=== PATIENT | female | born 1940 | race Hispanic/Latino ===

== ENCOUNTER 2018-01-06 10:22 | Emergency (ER) | payer MEDICARE, MEDICAID ==
[2018-01-06 10:29] VITALS: RESP 16; TEMP 98.3
--- NOTE | 2018-01-06 10:57 | C.PDOC ---
History Of Present Illness 77 year old female with a PSH of cholecystectomy presents to the ER complaining of left lower quadrant pain for 3 days. Patient denies any radiation of pain, fever, nausea, vomiting, diarrhea, or any urinary symptoms. LLQ PAIN X 3 DAYS, LOCALIZED. NO FEVER, NVD, UTI SX. PSH NICOLE. EXAM +LLQ TEND MILD SOFT NO R/G REMAINDER NEG Time Seen by Provider: 01/06/18 10:31 Chief Complaint (Nursing): Abdominal Pain History Per: Patient History/Exam Limitations: no limitations Onset/Duration Of Symptoms: Days Current Symptoms Are (Timing): Still Present Location Of Pain/Discomfort: LLQ Radiation Of Pain To:: None Quality Of Discomfort: "Pain" Associated Symptoms: denies: Fever, Chills, Nausea, Diarrhea, Urinary Symptoms Past Medical History Reviewed: Historical Data, Nursing Documentation, Vital Signs Vital Signs: Last Vital Signs Temp 98.3 F 01/06/18 10:27 Pulse 71 01/06/18 14:42 Resp 16 01/06/18 14:42 BP 131/85 01/06/18 14:42 Pulse Ox 98 01/06/18 14:42 Surgical History: Cholecystectomy - [facility] Procedures PERCUTAN NEEDLE BIOPSY OF BREAST (07/04/05) Family History: States: No Known Family Hx - Social History Hx Alcohol Use: No Hx Substance Use: No Review Of Systems Except As Marked, All Systems Reviewed And Found Negative. Constitutional: Negative for: Fever, Chills Gastrointestinal: Positive for: Abdominal Pain (LLQ). Negative for: Nausea, Vomiting, Diarrhea Genitourinary: Negative for: Dysuria, Incontinence, Vaginal Discharge, Vaginal Bleeding Physical Exam - Physical Exam Appears: Non-toxic, No Acute Distress Skin: Normal Color, Warm, Dry Head: Atraumatic, Normacephalic Eye(s): bilateral: Normal Inspection Nose: Normal Oral Mucosa: Moist Neck: Supple Chest: Symmetrical Cardiovascular: Rhythm Regular Respiratory: Other (NARD) Gastrointestinal/Abdominal: Soft, Tenderness (Mild tenderness to LLQ), No Guarding, No Rebound Neurological/Psych: Oriented x3, Normal Speech Gait: Steady ED Course And Treatment - Laboratory Results Result Diagrams: 01/06/18 11:31 01/06/18 11:31 O2 Sat by Pulse Oximetry: 95 (RA) Pulse Ox Interpretation: Normal - Radiology CXR: Interpreted by Me CXR Interpretation: Yes: No Acute Disease - CT Scan/US CT ABD/PEL Other Rad Studies (CT/US): Read By Radiologist, Radiology Report Reviewed CT/US Interpretation: Accession No. : [id number]. Patient Name / ID : DEANN SEGAL / [id number]. Exam Date : 01/06/2018 12:45:15 ( Approved ). Study Comment : Sex / Age : F / 77Y. Creator : Jesus Alberto Sumner MD. Dictator : Jesus Alberto Sumner MD. Tip Inserter : Investor Relations Specialist : Jesus Alberto Sumner MD. Approver2 : Report Date : 01/06/2018 14:00:10. My Comment : . Date of service: 01/06/2018. PROCEDURE: CT Abdomen and Pelvis with intravenous contrast. HISTORY: Left lower quadrant abdominal pain. COMPARISON: None. TECHNIQUE: Multiple contiguous axial images were performed through the abdomen and pelvis with the use of intravenous contrast. Subsequently, sagittal and coronal reformatted images were obtained. Radiation dose: Total exam DLP = 569 mGy-cm. This CT exam was performed using one or more of the following dose reduction techniques: Automated exposure control, adjustment of the mA and/or kV according to patient size, and/or use of iterative reconstruction technique. FINDINGS: LOWER THORAX: Scattered atelectasis at the lung bases. Coronary and aortic calcifications. Atherosclerotic calcification and plaque within the aorta. LIVER: Few punctate scattered hypodensities in the liver, too small to adequately characterize. GALLBLADDER AND BILE DUCTS: Status postcholecystectomy. PANCREAS: Fatty atrophy of the pancreas. SPLEEN: Unremarkable. ADRENALS: Mild nodularity of the adrenal glands. KIDNEYS AND URETERS: Multiple bilateral low-attenuation lesions throughout the kidney for example in the right kidney measuring up to 1.6 centimeters demonstrating a Hounsfield unit attenuation of 14 and in the left kidney measuring up to 3.1 centimeters demonstrating a Hounsfield unit attenuation of 16. These may be better evaluated with renal ultrasound and or multiphasic CT if clinically indicated. VASCULATURE: Atherosclerotic calcification and plaque within the aorta. BOWEL: Marked thickening of the mid to distal sigmoid colon and proximal rectum with associated adjacent mesenteric fat stranding. A few diverticuli noted at that level. These findings may represent an acute focal colitis versus acute diverticulitis versus additional etiology. Posttreatment interval followup colonoscopy would be helpful to ensure resolution and exclude underlying colonic lesion. Under distended descending colon. Moderate fecal retention in the right hemicolon. APPENDIX: Unremarkable. Normal appendix. PERITONEUM: Unremarkable. No free fluid. No free air. LYMPH NODES: Few shotty para-aortic and inguinal lymph nodes. BLADDER: Unremarkable. REPRODUCTIVE: Heterogeneous uterus and bilateral adnexa. Left adnexal cyst noted. BONES: Degenerative changes in the spine. Osteitis pubis. Anterolisthesis of L5 on S1. OTHER FINDINGS: Small fat containing umbilical hernia. IMPRESSION: Marked thickening of the mid to distal sigmoid colon and proximal rectum with associated adjacent mesenteric fat stranding. A few diverticuli noted at that level. These findings may represent an acute focal colitis versus acute diverticulitis versus additional etiology. Posttreatment interval followup colonoscopy would be helpful to ensure resolution and exclude underlying colonic lesion. Additional findings as above. Progress Note: CT Abd/Pel, CXR and EKG ordered and reviewed. Patient given Morphine 2mg IVP and Zofran 4mg IVP. Urine collected and sent to the lab for analysis. Progress - Re-Evaluation Re-evaluation Note: 01/06/18 14:17 APPEARS COMFORTABLE NAD NO S/S ACUTE ABD VSS. PENDING FU GI 01/14. ABX, FU GI - Data Reviewed Data Reviewed: Lab, Diagnostic imaging, Old records - Continuity of Care Discussed patient case with:: Patient, Family-HIPPA compliant Disposition Counseled Patient/Family Regarding: Studies Performed, Diagnosis, Need For Followup, Rx Given - Disposition Referrals: YOUR,GI DOCTOR [Other] Disposition: HOME/ ROUTINE Disposition Time: 14:17 Condition: IMPROVED Prescriptions: Acetaminophen with Codeine [Tylenol with Codeine No. 3 300 mg-30 mg] 1 tab PO Q6 PRN #12 tab PRN Reason: Pain, Moderate (4-7) Ciprofloxacin [Cipro] 1 tab PO BID #14 tab Dicyclomine [Bentyl] 20 mg PO TID PRN #12 tab PRN Reason: Pain Metronidazole [Flagyl] 500 mg PO BID #14 tab Instructions: Diverticulitis (DC) Forms: [facility] (Malaysian) Print Language: LUXEMBOURGISH - Clinical Impression Clinical Impression: Diverticulitis - Scribe Statement The provider has reviewed the documentation as recorded by the Scribe Rand Wright All medical record entries made by the Didieribkaryna were at my direction and personally dictated by me. I have reviewed the chart and agree that the record accurately reflects my personal performance of the history, physical exam, medical decision making, and the department course for this patient. I have also personally directed, reviewed, and agree with the discharge instructions and disposition.
[2018-01-06 11:45] LABS: BASO % 0.2 % (0.0-2.0); EOS % 0.4 % (0.0-4.0); LYMPH # 1.1 K/uL (1.0-4.3); NEUT # 4.6 K/uL (1.8-7.0); WHITE BLOOD COUNT 6.3 K/uL (4.8-10.8)
[2018-01-06 11:50] LABS: HEMOGLOBIN 12.9 g/dL (11.0-16.0); LYMPH % 17.1 % (20.0-40.0); MEAN CELL VOLUME 95.2 fL (81.0-99.0); MEAN CORPUSCULAR HEMOGLOBIN 33.1 pg (27.0-31.0); MEAN CORPUSCULAR HGB CONC 34.7 g/dL (33.0-37.0); MEAN PLATELET VOLUME 8.9 fL (7.2-11.7); MONO # 0.6 K/uL (0.0-0.8); MONO % 9.2 % (0.0-10.0); NEUT % 73.1 % (50.0-75.0); RBC 3.9 Mil/uL (3.80-5.20); RED CELL DISTRIBUTION WIDTH 12.9 % (11.5-14.5)
[2018-01-06 11:54] LABS: ALB/GLOB RATIO 1.2 (1.0-2.1); ALBUMIN 4.2 g/dL (3.5-5.0); ALT/SGPT 24 U/L (9-52); AST/SGOT 19 U/L (14-36); BLOOD UREA NITROGEN 11 mg/dL (7-17); CALCIUM 9.2 mg/dl (8.6-10.4); GFR AFRICAN-AMERICAN > 60; GFR NON-AFRICAN AMERICAN > 60; LIPASE 28 U/L (23-300)
--- NOTE | 2018-01-06 12:01 | RAD ---
Chest x-ray single frontal view History: Chest pain. Comparison: 08/31/2015 Findings: Mild venous congestion. Status post median sternotomy. Prior valve replacement. Tortuous ectatic aorta. Mild cardiomegaly. Bibasilar breast and nipple shadows. Impression: Mild venous congestion.
[2018-01-06 12:11] LABS: URINE BILIRUBIN NEGATIVE (NEGATIVE); URINE BLOOD 1+ (NEGATIVE); URINE CLARITY Clear (Clear); URINE COLOR Straw (YELLOW); URINE GLUCOSE (UA) NORMAL (Normal); URINE LEUKOCYTE ESTERASE 1+ Leu/uL (Negative); URINE PROTEIN NEGATIVE (NEGATIVE); URINE UROBILINOGEN NORMAL mg/dL (0.2-1.0)
[2018-01-06 12:12] LABS: SQUAMOUS EPITHIAL 2 /hpf (0-5); URINE BACTERIA RARE (<OCC)
[2018-01-06] MEDS ORDERED: Iodixanol 320 MG/ML 100 ML BOTTLE IV ONE (12:22)
--- NOTE | 2018-01-06 14:01 | CT ---
Date of service: 01/06/2018 PROCEDURE: CT Abdomen and Pelvis with intravenous contrast HISTORY: Left lower quadrant abdominal pain COMPARISON: None. TECHNIQUE: Multiple contiguous axial images were performed through the abdomen and pelvis with the use of intravenous contrast. Subsequently, sagittal and coronal reformatted images were obtained. Radiation dose: Total exam DLP = 569 mGy-cm. This CT exam was performed using one or more of the following dose reduction techniques: Automated exposure control, adjustment of the mA and/or kV according to patient size, and/or use of iterative reconstruction technique. FINDINGS: LOWER THORAX: Scattered atelectasis at the lung bases. Coronary and aortic calcifications. Atherosclerotic calcification and plaque within the aorta. LIVER: Few punctate scattered hypodensities in the liver, too small to adequately characterize. GALLBLADDER AND BILE DUCTS: Status postcholecystectomy. PANCREAS: Fatty atrophy of the pancreas. SPLEEN: Unremarkable. ADRENALS: Mild nodularity of the adrenal glands. KIDNEYS AND URETERS: Multiple bilateral low-attenuation lesions throughout the kidney for example in the right kidney measuring up to 1.6 centimeters demonstrating a Hounsfield unit attenuation of 14 and in the left kidney measuring up to 3.1 centimeters demonstrating a Hounsfield unit attenuation of 16. These may be better evaluated with renal ultrasound and or multiphasic CT if clinically indicated. VASCULATURE: Atherosclerotic calcification and plaque within the aorta. BOWEL: Marked thickening of the mid to distal sigmoid colon and proximal rectum with associated adjacent mesenteric fat stranding. A few diverticuli noted at that level. These findings may represent an acute focal colitis versus acute diverticulitis versus additional etiology. Posttreatment interval followup colonoscopy would be helpful to ensure resolution and exclude underlying colonic lesion. Under distended descending colon. Moderate fecal retention in the right hemicolon. APPENDIX: Unremarkable. Normal appendix. PERITONEUM: Unremarkable. No free fluid. No free air. LYMPH NODES: Few shotty para-aortic and inguinal lymph nodes. BLADDER: Unremarkable. REPRODUCTIVE: Heterogeneous uterus and bilateral adnexa. Left adnexal cyst noted. BONES: Degenerative changes in the spine. Osteitis pubis. Anterolisthesis of L5 on S1. OTHER FINDINGS: Small fat containing umbilical hernia. IMPRESSION: Marked thickening of the mid to distal sigmoid colon and proximal rectum with associated adjacent mesenteric fat stranding. A few diverticuli noted at that level. These findings may represent an acute focal colitis versus acute diverticulitis versus additional etiology. Posttreatment interval followup colonoscopy would be helpful to ensure resolution and exclude underlying colonic lesion. Additional findings as above.
[2018-01-06 14:43] VITALS: BP 131/85; PULSE 71
[2018-01-06 18:27] VITALS: O2SAT 95
== END 2018-01-06 14:42 | disposition home or self-care (01) ==
LOC: C.ER 10:22
DX: K57.92 Diverticulitis of intestine, part unspecified, without perforation or abscess without bleeding (principal)
CPT/HCPCS: 71045; 74177; 80053; 81001; 83690; 85025; 96374; 99284; J2270; Q9967